=== PATIENT | female | born 1985 | race Caucasian/White ===

== ENCOUNTER → 2016-09-27 | Outpatient (REF) | payer BC | LOC: M SFHCWAGY 11:35 | PROVIDERS: ATTEND Nurse Practitioner Women's Health | DX: R10.2 Pelvic and perineal pain (principal); N94.10 Unspecified dyspareunia; Z11.3 Encounter for screening for infections with a predominantly sexual mode of transmission ==

== ENCOUNTER → 2016-09-28 | Outpatient (CLI) | payer BC ==
--- NOTE | 2016-09-28 17:57 | REP ---
PELVIC ULTRASOUND: Real-time sonographic evaluation of the pelvis performed utilizing transabdominal and endovaginal technique. The bladder measures 5.2 x 5.1 x 8.6 cm. Uterus measures 8.0 x 2.4 x 3.5 cm. Endometrial thickness is 6 mm with no endometrial fluid collection. Right ovary measures 2.7 x 2.0 x 2.2 cm. The left ovary measures 3.2 x 2.4 x 2.6 cm. A dominant follicle in the left ovary measures 2.2 cm in maximum diameter. There is no adnexal mass or free fluid. IMPRESSION: Essentially normal pelvic ultrasound.
== END ==
LOC: M WHC 14:25
PROVIDERS: ATTEND Nurse Practitioner Women's Health
DX: R10.2 Pelvic and perineal pain (principal); N94.10 Unspecified dyspareunia

== ENCOUNTER → 2016-11-14 | Outpatient (REF) | payer BC | LOC: M SFHCWAGY 14:15 | PROVIDERS: ATTEND Nurse Practitioner Women's Health | DX: Z12.4 Encounter for screening for malignant neoplasm of cervix (principal) | CPT/HCPCS: 87491; 87591; G0123 ==

== ENCOUNTER → 2017-03-13 | Outpatient (CLI) | payer BC | LOC: M RAD 15:01 | DX: Q07.00 Arnold-Chiari syndrome without spina bifida or hydrocephalus (principal) ==

== ENCOUNTER → 2017-04-02 | Outpatient (CLI) | payer BC ==
[2017-04-02 17:37] LABS: ALBUMIN/GLOBULIN RATIO 1.08 (1.00-1.93); ALKALINE PHOSPHATASE 65 U/L (45-117); ALT/SGPT 22 U/L (12-78); ANION GAP 8 MEQ/L (8-16); AST/SGOT 13 U/L (7-37); BILIRUBIN,TOTAL 0.4 MG/DL (0.2-1.0); BLOOD UREA NITROGEN 15 MG/DL (7-18); CALCIUM LEVEL 9.1 MG/DL (8.5-10.1); CARBON DIOXIDE LEVEL 28 MEQ/L (21-32); CHLORIDE LEVEL 103 MEQ/L (98-107); CREATININE FOR GFR 0.89 MG/DL (0.55-1.30); GLOMERULAR FILTRATION RATE > 60.0 (>60); GLUCOSE, FASTING 106 MG/DL (70-100); POTASSIUM SERUM 4.3 MEQ/L (3.5-5.1); RHEUMATOID FACTOR QUANT < 10.0 IU/ML (0-15.0); SODIUM LEVEL 139 MEQ/L (136-145); TOTAL PROTEIN 7.7 GM/DL (6.4-8.2)
[2017-04-02 17:39] LABS: TOTAL 25(OH) VITAMIN D 19.3 NG/ML (30.0-100.0)
[2017-04-02 19:26] LABS: BASO # 0.1 10^3/uL (0.0-0.2); BASO % 0.9 % (0.0-1.0); EOS # 0.2 10^3/uL (0.0-0.50); EOS % 2.2 % (0.0-3.0); HEMATOCRIT 41.2 % (36.0-47.0); HEMOGLOBIN 13.2 g/dl (12.0-16.0); IMMATURE GRANULOCYTE % 0.2 % (0-3.0); LYMPH # 3.9 10^3/uL (1.5-4.5); LYMPH % 40.7 % (24.0-44.0); MEAN CORPUSCULAR HEMOGLOBIN 28.2 pg (27.0-33.0); MONO # 0.5 10^3/uL (0.0-0.8); MONO % 5.1 % (0.0-5.0); NEUTROPHILS # 4.9 10^3/uL (1.8-7.7); NEUTROPHILS % 50.9 % (36.0-66.0); PLATELET COUNT, AUTOMATED 389 10^3/uL (150-450); RED BLOOD COUNT 4.68 10^6/uL (4.00-5.40); WHITE BLOOD COUNT 9.7 10^3/uL (4.0-10.0)
[2017-04-02 20:03] LABS: ERYTHROCYTE SEDIMENTATION RATE 5 mm/hr (0-20)
[2017-04-04 10:17] LABS: ANTINUCLEAR ANTIBODIES DIRECT Negative (Negative)
== END ==
LOC: M LAB 16:38
DX: R51 Headache (principal)
CPT/HCPCS: 84443

== ENCOUNTER → 2017-07-27 | Outpatient (REF) | payer BC ==
[2017-07-27 19:55] LABS: CHLAMYDIA DNA AMPLIFICATION NEGATIVE (NEGATIVE); GC DNA AMPLIFICATION NEGATIVE (NEGATIVE)
== END ==
LOC: M SFHCWAGY 16:48
DX: R39.14 Feeling of incomplete bladder emptying (principal)
CPT/HCPCS: 87086

== ENCOUNTER → 2017-11-15 | Outpatient (REF) | payer BC | LOC: M SFHCWAGY 15:49 | DX: Z12.4 Encounter for screening for malignant neoplasm of cervix (principal) | CPT/HCPCS: G0123 ==

== ENCOUNTER → 2017-11-15 | Outpatient (REF) | payer BC ==
[2017-11-15 22:25] LABS: CHLAMYDIA DNA AMPLIFICATION NEGATIVE (NEGATIVE); GC DNA AMPLIFICATION NEGATIVE (NEGATIVE)
== END ==
LOC: M SFHCWAGY 17:15
DX: Z11.3 Encounter for screening for infections with a predominantly sexual mode of transmission (principal)
CPT/HCPCS: 87591

== ENCOUNTER → 2018-07-27 | Outpatient (CLI) | payer BC ==
[2018-07-27 09:44] LABS: BASO # 0.1 10^3/uL (0.0-0.2); EOS # 0.2 10^3/uL (0.0-0.50); EOS % 2.1 % (0.0-3.0); HEMATOCRIT 38.7 % (36.0-47.0); HEMOGLOBIN 12.3 g/dl (12.0-15.5); LYMPH # 2.8 10^3/uL (1.5-4.5); LYMPH % 35.3 % (24.0-44.0); MEAN CORPUSCULAR HEMOGLOBIN 28.4 pg (27.0-33.0); MEAN CORPUSCULAR HGB CONC 31.8 g/dl (32.0-36.5); MEAN CORPUSCULAR VOLUME 89.4 fl (80.0-96.0); MONO # 0.4 10^3/uL (0.0-0.8); MONO % 5.4 % (0.0-5.0); NEUTROPHILS # 4.4 10^3/uL (1.8-7.7); NEUTROPHILS % 55.9 % (36.0-66.0); PLATELET COUNT, AUTOMATED 283 10^3/uL (150-450); RED BLOOD COUNT 4.33 10^6/uL (4.00-5.40); WHITE BLOOD COUNT 7.9 10^3/uL (4.0-10.0)
[2018-07-27 10:18] LABS: ALBUMIN 3.5 GM/DL (3.2-5.2); ALT/SGPT 19 U/L (12-78); BILIRUBIN,TOTAL 0.5 MG/DL (0.2-1.0); BLOOD UREA NITROGEN 13 MG/DL (7-18); CALCIUM LEVEL 8.8 MG/DL (8.5-10.1); CARBON DIOXIDE LEVEL 27 MEQ/L (21-32); CHLORIDE LEVEL 108 MEQ/L (98-107); CHOLESTEROL LEVEL 177 MG/DL (<200); CHOLESTEROL RISK RATIO 4.317 (<5); CREATININE FOR GFR 0.77 MG/DL (0.55-1.30); GLOMERULAR FILTRATION RATE > 60.0 (>60); GLUCOSE, FASTING 89 MG/DL (70-100); HDL CHOLESTEROL 41 MG/DL (>40); LDL CHOLESTEROL 111 MG/DL (<100); NON-HDL-C 136 MG/DL; POTASSIUM SERUM 4.2 MEQ/L (3.5-5.1); SODIUM LEVEL 140 MEQ/L (136-145); T UPTAKE 33 % (30-39); THYROXINE (T4) 9.7 UG/DL (4.5-12.0); TOTAL PROTEIN 6.9 GM/DL (6.4-8.2); TRIGLYCERIDES LEVEL 123 MG/DL (<150)
[2018-07-29 11:13] LABS: TESTOSTERONE 16 NG/DL (14-76); TOTAL 25(OH) VITAMIN D 16.9 NG/ML (30.0-100.0)
[2018-07-30 00:06] LABS: EBV AB TO NUCLEAR ANTIGEN <18.0 U/mL (0.0-17.9); EBV VIRAL CAPSID AG IgM <36.0 U/mL (0.0-35.9)
== END ==
LOC: M LAB 09:13
PROVIDERS: ATTEND Physician Assistant
DX: R53.83 Other fatigue (principal); E55.9 Vitamin D deficiency, unspecified; E78.5 Hyperlipidemia, unspecified

== ENCOUNTER → 2018-12-24 | Outpatient (CLI) | payer BC ==
--- NOTE | 2018-12-25 08:44 | REP ---
MRI left foot without contrast: History: Pain in the left foot. No comparison radiographs are available. Rule out OCD lesion or peroneal tendonitis. Technique: Axial, coronal and sagittal imaging planes are utilized. T1 and T2-weighted scans are included with and without fat saturation. MRI findings: Cortical and medullary bone signal intensity are normal. There is no evidence of tarsal coalition or occult bony injury. Plantar fascia are smooth. The Achilles tendon is normal in size and homogeneous and low in signal intensity. There is a tiny amount of fluid anterior to its distal calcaneal insertion. No joint effusion or juxtaarticular cyst is seen. There is no evidence of ligament disruption at the ankle. The talar dome and tibial plafond are unremarkable. There is no evidence of osteochondral defect lesion. Peroneus longus and brevis tendons appear intact laterally. Medially, the tibialis posterior, flexor digitorum, and flexor hallicis longus tendons have an intact appearance as well. There is no evidence of extensor tendinopathy. The soft tissues in the web spaces as well as dorsal and volar soft tissues are unremarkable. Impression: No abnormality noted. Electronically Signed by Orlin De Souza MD 12/25/2018 10:21 A
== END ==
LOC: M RAD 17:29
PROVIDERS: ATTEND Orthopaedic Surgery Sports Medicine
DX: M79.672 Pain in left foot (principal)

== ENCOUNTER → 2019-04-18 | Outpatient (CLI) | payer BC ==
[2019-04-18 15:50] LABS: ESTRADIOL 34.8 PG/ML; FOLLICLE STIMULATING HORMONE 4.4 mIU/mL; LUTEINIZING HORMONE 3.6 mIU/mL; PROGESTERONE 0.21 NG/ML
== END ==
LOC: M LAB 14:35
PROVIDERS: ATTEND Obstetrics & Gynecology
DX: E34.9 Endocrine disorder, unspecified (principal)

== ENCOUNTER → 2019-07-17 | Outpatient (CLI) | payer BC ==
[2019-07-17 18:30] LABS: ESTRADIOL 74.1 PG/ML; LUTEINIZING HORMONE 12.5 mIU/mL; PROGESTERONE 0.21 NG/ML
[2019-07-19 16:08] LABS: TESTOSTERONE FREE (DIRECT) 0.6 pg/mL (0.0-4.2)
== END ==
LOC: M LAB 16:50
PROVIDERS: ATTEND Obstetrics & Gynecology
DX: I48.0 Paroxysmal atrial fibrillation (principal); R53.83 Other fatigue; F52.0 Hypoactive sexual desire disorder

== ENCOUNTER → 2020-03-09 | Outpatient (REF) | payer BC ==
[2020-03-09 18:18] LABS: HEMATOCRIT 38.2 % (36.0-47.0); HEMOGLOBIN 12.6 g/dl (12.0-15.5); MEAN CORPUSCULAR HEMOGLOBIN 28.8 pg (27.0-33.0); MEAN CORPUSCULAR VOLUME 87.4 fl (80.0-96.0); PLATELET COUNT, AUTOMATED 360 10^3/uL (150-450); RED BLOOD COUNT 4.37 10^6/uL (4.00-5.40); WHITE BLOOD COUNT 11.1 10^3/uL (4.0-10.0)
[2020-03-09 19:45] LABS: HCG, SERUM QUANTITATIVE 67692 MIU/ML; HEPATITIS C VIRUS ABY INDEX < 0.0 INDEX (<0.8); HIV 1&2 SCREEN CENTAUR NEGATIVE (NEGATIVE)
== END ==
LOC: M LAB REF 16:59
PROVIDERS: ATTEND Obstetrics & Gynecology
DX: O36.80X0 Pregnancy with inconclusive fetal viability, not applicable or unspecified (principal)

== ENCOUNTER → 2020-03-15 | Outpatient (CLI) | payer BC ==
--- NOTE | 2020-03-15 18:28 | REP ---
INDICATION: DATING AND VIABILITY. Supervision of . COMPARISON: None. TECHNIQUE: Transabdominal sonographic scanning. FINDINGS: Scanning through the urine filled bladder demonstrates a viable single intrauterine gestation in a free-floating lie. The crown-rump length of the embryonic pole is 2.0 cm. This corresponds with a gestational age estimate of 8 weeks 4 days. heart rate is recorded at 161 beats per minute. No extra uterine abnormality is observed. IMPRESSION: Viable single intrauterine gestation at 8 weeks 4 days by today's composite sonographic criteria. BRUNA by today's sonography October 21, 2020. No complication identified. <Electronically signed by Giovanni De Souza > 03/15/20 [id number]
== END ==
LOC: M WHC 11:58
PROVIDERS: ATTEND Obstetrics & Gynecology
DX: O36.80X0 Pregnancy with inconclusive fetal viability, not applicable or unspecified (principal); Z3A.08 8 weeks gestation of pregnancy

== ENCOUNTER → 2020-06-07 | Outpatient (CLI) | payer BC ==
--- NOTE | 2020-06-07 15:29 | REP ---
INDICATION: ANATOMY COMPARISON: 03/15/2020 TECHNIQUE: Transabdominal obstetrical ultrasound with color Doppler evaluation. FINDINGS: Examination demonstrates a single live intrauterine in cephalic presentation. motion is identified by technologist. Placenta is noted posterior and grade 1 without evidence for placenta previa or abruption. Amniotic fluid volume is normal. Cervix measures 3.4 cm in length and appears closed.. Gestational age by LMP and 1st U/S 20 weeks 0 days with BRUNA 10/25/2020. Gestational age by current measurements 21 weeks 4 days with BRUNA 10/14/2020. FHR equals 150 beats per minute. BPD: 5.1 cm at 21 weeks 3 days HC: 19.0 cm at 21 weeks 2 days AC: 16.4 cm at 21 weeks 3 days FL: 3.7 cm at 21 weeks 4 days HL: 3.6 cm at 22 weeks 3 days HC/AC: 1.15 Estimated weight 429 grams (greater than 97thpercentile based on age by LMP and 1st ultrasound). Anatomical assessment demonstrates normal structures including cranium, choroid plexus, cavum, cerebellum/posterior fossa, facial features, lungs, four-chamber heart/ventricular outflow tracts, diaphragm, stomach, cord insertion/three-vessel cord, kidneys/bladder, spine, and extremities. IMPRESSION: 1. Single live intrauterine in cephalic presentation. Anatomical assessment is complete and normal. 2. Estimated weight is greater than 97th percentile based on age by 1st ultrasound. Correlation is recommended. <Electronically signed by Gregory Silva > 06/07/20 [id number]
== END ==
LOC: M WHC 14:26
PROVIDERS: ATTEND Advanced Practice Midwife
DX: Z34.82 Encounter for supervision of other normal pregnancy, second trimester (principal); Z3A.20 20 weeks gestation of pregnancy

== ENCOUNTER → 2020-07-20 | Outpatient (REF) | LOC: M LABSMTC 10:39 | PROVIDERS: ATTEND Pediatrics | DX: Z20.822 Contact with and (suspected) exposure to COVID-19 (principal) ==

== ENCOUNTER → 2020-07-27 | Outpatient (REF) | payer BC ==
[2020-07-27 17:06] LABS: BACTERIA, URINE AUTO 2+ (NEGATIVE); CALCIUM OXALATE CRYSTALS SMALL; RBC, URINE AUTO 1 /HPF (0-3); SQUAMOUS EPITHELIAL CELL UR AU 5 /HPF (0-6); WBC, URINE AUTO 14 /HPF (0-3)
== END ==
LOC: M LAB REF 16:36
PROVIDERS: ATTEND Advanced Practice Midwife
DX: N39.0 Urinary tract infection, site not specified (principal)

== ENCOUNTER → 2020-08-03 | Outpatient (CLI) | payer BC ==
[2020-08-03 16:29] LABS: HEMATOCRIT 34.9 % (36.0-47.0); HEMOGLOBIN 11.4 g/dl (12.0-15.5); MEAN CORPUSCULAR HEMOGLOBIN 28.9 pg (27.0-33.0); MEAN CORPUSCULAR HGB CONC 32.7 g/dl (32.0-36.5); MEAN CORPUSCULAR VOLUME 88.4 fl (80.0-96.0); PLATELET COUNT, AUTOMATED 281 10^3/uL (150-450); RED BLOOD COUNT 3.95 10^6/uL (4.00-5.40)
== END ==
LOC: M LAB 15:33
PROVIDERS: ATTEND Advanced Practice Midwife
DX: Z34.83 Encounter for supervision of other normal pregnancy, third trimester (principal); Z3A.00 Weeks of gestation of pregnancy not specified

== ENCOUNTER → 2020-09-21 | Outpatient (REF) | payer BC | LOC: M LAB REF 17:07 | PROVIDERS: ATTEND Obstetrics & Gynecology | DX: Z34.03 Encounter for supervision of normal first pregnancy, third trimester (principal); Z3A.00 Weeks of gestation of pregnancy not specified ==

== ENCOUNTER → 2020-10-06 | Outpatient (REF) | LOC: M LABSMTC 13:38 | PROVIDERS: ATTEND Pediatrics | DX: Z20.828 Contact with and (suspected) exposure to other viral communicable diseases (principal); Z11.59 Encounter for screening for other viral diseases ==

== ENCOUNTER 2020-10-27 04:32 | Inpatient (IN) | payer BC ==
[2020-10-27] VITALS (104 sets, daily range): BP systolic 80–159; BP diastolic 45–86
[~2020-10-27] VITALS: Ht 167.6 cm; Wt 112.0 kg
[2020-10-27] MEDS ORDERED: HOME MED LIST COMPLETE! XX SCH (05:00)
[2020-10-27] MEDS ORDERED: LACTATED RINGER'S 1000 ML IV STA (06:23)
[2020-10-27] MEDS ORDERED: METHYLERGONOVINE MALEATE 0.2 MG/ML VIAL (J2210) IM PRN (06:25)
[2020-10-27] MEDS ORDERED: LIDOCAINE 1% MDV 20ML VIAL INFIL PRN (06:25)
[2020-10-27] MEDS ORDERED: OXYTOCIN INJ 10 UNITS/ML VIAL (J2590) IM PRN (06:25)
[2020-10-27] MEDS ORDERED: OXYTOCIN DRIP 30 UNITS in IV 1 EA IV PRN ×4 (06:25)
[2020-10-27] MEDS ORDERED: TRANEXAMIC ACID INJection 1,000 MG in NS 100 ML IV PRN (06:25)
[2020-10-27] MEDS ORDERED: CARBOPROST TROMETHAMINE 250 MCG/ML AMP IM PRN (06:25)
[2020-10-27 06:38] LABS: HEMATOCRIT 38.8 % (36.0-47.0); HEMOGLOBIN 13.1 g/dl (12.0-15.5); MEAN CORPUSCULAR HGB CONC 33.8 g/dl (32.0-36.5); MEAN CORPUSCULAR VOLUME 85.8 fl (80.0-96.0); PLATELET COUNT, AUTOMATED 318 10^3/uL (150-450); RED BLOOD COUNT 4.52 10^6/uL (4.00-5.40); WHITE BLOOD COUNT 12.6 10^3/uL (4.0-10.0)
[2020-10-27] MEDS: ONDANSETRON 4MG/2ML VIAL IV PRN ×2 (06:43→14:57)
--- NOTE | 2020-10-27 06:59 | HPE ---
HISTORY AND PHYSICAL DATE OF ADMISSION: 10/27/2020 HISTORY OF PRESENT ILLNESS: Susanna is a 35-year-old 1 para 0 at 40 and 2/7th weeks gestation with an EDC of 10/25/2020 based on first trimester ultrasound. She presents to Labor and Delivery today with a report of ruptured membranes at 0240, clear fluid and painful contractions. She does deny vaginal bleeding. She reports continued leakage, the fetus has been active. Her care was initiated at [facility] in the first trimester. The course was complicated by advanced maternal age. OBSTETRIC HISTORY: Primigravida. OBSTETRIC LABS: B positive, antibody screen negative, syphilis negative, hepatitis B surface antigen negative, hepatitis C antibody nonreactive. HIV nonreactive, rubella immune. Gestational diabetic screening 131, GBS is negative. COVID-19 on 10/19/2020 negative. Gonorrhea and chlamydia not performed. PAST MEDICAL HISTORY: Migraine headaches. PAST SURGICAL HISTORY: In 1999 surgery for Chiari malformation. FAMILY HISTORY: High cholesterol, hypertension, lupus, muscular dystrophy. SOCIAL HISTORY: The patient is . She is a physical therapist. She denies drug use and alcohol use. She is a nonsmoker. She denies any history of sexually transmitted infections and she denies history of abuse, physical, sexual and emotional. ALLERGIES: No known drug allergies. CURRENT MEDICATIONS: Omeprazole 20 mg daily, Fioricet as needed and vitamin. OBJECTIVE: Temperature 98.3, respirations 18, pulse is 70, BP is 134/70. She is uncomfortable with her contractions. heart rate is 130 with moderate variability, positive accelerations, negative decelerations. Contractions appear to be every 2 to 4 minutes. She is grossly ruptured per Dr. Canales, positive Nitrazine. Sterile vaginal exam per RICHARD Melendez, 3 to 4 cm dilated, 60% effaced, -2 station. Abdomen is gravid, cephalic presentation. ASSESSMENT: Intrauterine at 40 and 2/7th weeks. heart rate Category 1, active labor at term. PLAN: Admit the patient to Labor and Delivery, routine laboratories, out of bed ad aleena, a clear liquid at this time, the patient is requesting an epidural for her labor coping. IV fluid bolus has been ordered. The patient has been verbally consented for emergency surgery and blood products if they are necessary. May consider IV Pitocin augmentation if necessary once epidural is in place. I do anticipate labor progress and a vaginal delivery.
[2020-10-27] MEDS ORDERED: FENTANYL 2MCG/ML ROPIVACAINE 0.2% IN 0.9% NACL 100ML IVBAG As Ordered ONE ×2 (07:05→13:16)
[2020-10-27] MEDS ORDERED: REFRIGERATOR IV KEYS XX PRN (07:30)
[2020-10-27] MEDS ORDERED: ONDANSETRON 4MG/2ML VIAL IV PRN (07:30)
[2020-10-27] MEDS ORDERED: NALOXONE INJ 0.4MG/1ML VIAL (J2310 PER 1MG) IV PRN (07:30)
[2020-10-27] MEDS ORDERED: diphenhydrAMINE 50MG/ML VIAL (J1200) IV PRN (07:30)
[2020-10-27] MEDS ORDERED: LACTATED RINGER'S 1000 ML IV PRN (07:30)
[2020-10-27] MEDS ORDERED: EPIDURAL/PCA KEYS XX PRN (07:30)
[2020-10-27] MEDS ORDERED: EPIDURAL COMMENT XX SCH (07:30)
[2020-10-27] MEDS: LR 1,000 ML IV SCH ×3 (08:10→17:28)
[2020-10-27] MEDS: FENTANYL/ROPIVACAINE/NACL BAG 100 ML EPIDURAL SCH ×2 (08:35→13:19)
[2020-10-27] MEDS: ePHEDrine SULFATE 25 MG/5 ML(5MG/ML) SYRINGE IV PRN ×5 (08:41→20:09)
[2020-10-27] MEDS: PRENATAL VITAMINS CHEWABLE TABLET PO SCH (09:48)
[2020-10-27 09:51] LABS: GC DNA AMPLIFICATION NEGATIVE (NEGATIVE)
[2020-10-27] MEDS ORDERED: OXYTOCIN DRIP 30 UNITS in IV 1 EA IV SCH (11:10)
[2020-10-28] VITALS (8 sets, daily range): BP systolic 109–132; BP diastolic 60–78
[2020-10-28] MEDS ORDERED: LACTATED RINGER'S 1000 ML IV STA (01:39)
[2020-10-28] MEDS ORDERED: BICITRA 30ML SOLN UDC PO ONE (01:40)
[2020-10-28] MEDS ORDERED: AZITHROMYCIN INJ 500 MG, VIAL MATE ADAPTER 1 EACH in NS 250 ML IV ONE (01:40)
[2020-10-28] MEDS ORDERED: ceFAZolin SOD 2 GM in IV 1 EA IV ONE (01:40)
[2020-10-28] MEDS ORDERED: ceFAZolin 2 GM/D5W 50 ML IV BAG (J0690 PER 500MG) As Ordered ONE (01:45)
[2020-10-28] MEDS ORDERED: AZITHROMYCIN INJ 500MG VIAL (J0456 PER 500MG) As Ordered ONE (01:47)
[2020-10-28] MEDS ORDERED: MORPHINE PRES-FREE INJ 10 MG/10 ML VIAL (J2274) As Ordered ONE (01:54)
[2020-10-28] MEDS ORDERED: OXYTOCIN 30 UNITS IN 0.9% NaCl 500ML IV BAG (J2590) As Ordered ONE (01:56)
[2020-10-28] MEDS ORDERED: LIDOCAINE 2% W/EPINEPHRINE 20ML VIAL **PRES FREE As Ordered ONE (01:58)
[2020-10-28] MEDS ORDERED: ONDANSETRON 4MG/2ML VIAL As Ordered ONE (02:10)
[2020-10-28] MEDS ORDERED: NALBUPHINE HCL 10 MG/ML AMP (J2300) IV PRN (02:15)
[2020-10-28] MEDS ORDERED: ONDANSETRON 4MG/2ML VIAL IV PRN ×3 (02:15→09:05)
[2020-10-28] MEDS ORDERED: NALOXONE INJ 0.4MG/1ML VIAL (J2310 PER 1MG) IV PRN ×2 (02:15)
[2020-10-28] MEDS ORDERED: diphenhydrAMINE 50MG/ML VIAL (J1200) IV PRN (02:15)
[2020-10-28] MEDS ORDERED: METOCLOPRAMIDE INJ 10MG/2ML VIAL (J2765 PER 1) IV PRN ×2 (02:15→09:05)
[2020-10-28] MEDS ORDERED: KETOROLAC 60MG 2ML VIAL As Ordered ONE (03:02)
[2020-10-28] MEDS ORDERED: dexameTHASONE 4 MG/ML 1ML VIAL (J1100 PER 1MG) As Ordered ONE (03:02)
[2020-10-28] MEDS ORDERED: PHENYLephrine 500MCG 5ML (100MCG/ML) SYRINGE As Ordered ONE (03:02)
[2020-10-28] MEDS ORDERED: OXYTOCIN INJ 10 UNITS/ML VIAL (J2590) As Ordered ONE (03:02)
[2020-10-28] MEDS ORDERED: fentaNYL 100 MCG/2 ML INJECTION (J3010) As Ordered ONE (03:13)
[2020-10-28] MEDS ORDERED: MEPERIDINE 50 MG/ML 1ML VIAL (J2175) As Ordered ONE (03:20)
[2020-10-28] MEDS ORDERED: diphenhydrAMINE 50MG/ML VIAL (J1200) As Ordered ONE (03:36)
[2020-10-28] MEDS ORDERED: propofoL 200 MG/20 ML VIAL As Ordered ONE (03:54)
[2020-10-28] MEDS ORDERED: LIDOCAINE 2% 100MG/5ML SDV (FOR ANES.) As Ordered ONE (03:55)
[2020-10-28] MEDS ORDERED: KETAMINE HCL 200 MG/20 ML VIAL As Ordered ONE (03:56)
[2020-10-28] MEDS ORDERED: MIDAZOLAM INJ 2MG/2ML VIAL (J2250 PER 1MG) As Ordered ONE (04:00)
[2020-10-28] MEDS ORDERED: oxyCODONE 5MG TAB PO PRN (04:45)
[2020-10-28] MEDS ORDERED: fentaNYL 100 MCG/2 ML INJECTION (J3010) IV PRN (04:45)
--- NOTE | 2020-10-28 04:55 | POST-OPPD ---
Postoperative Procedure Note Date Of Procedure: Oct 28, 2020 Time Of Procedure: 02:15 PREOPERATIVE DIAGNOSIS: 1) Intrauterine gestation at term 2) Failure to descend POSTOPERATIVE DIAGNOSIS: Same PROCEDURE: Primary low transverse section SURGEON: John Gray MD ATOMIC WELDER: Elisa Vasquez CNM ANESTHESIA: spinal ESTIMATED BLOOD LOSS: 800 FLUIDS: 1200 cc crystalloid URINE OUTPUT: 200 cc, clear yellow FINDINGS: single vigorous male weighing 4150gm SPECIMENS: none COMPLICATIONS: Incorrect count at the close of procedure. Postoperative x-ray revealed retained surgical sponge. Skin and fascial incision reopened and sponge removed. Final count correct x2 DRAINS: de la rosa catheter, draining clear yellow urine POSTOPERATIVE CONDITION: Patient taken to PACU in stable, satisfactory condition. JOHN GRAY MD Oct 28, 2020 04:55
--- NOTE | 2020-10-28 05:34 | ROOPDOC ---
[facility] Report Of Operation Report of Operation DATE OF PROCEDURE: 10/28/20 PREPROCEDURE DIAGNOSES: 1. Intrauterine gestation at term 2. Failure to descend POSTPROCEDURE DIAGNOSES: Same. PROCEDURE PERFORMED: Primary low transverse section with T-incision. SURGEON: John Gray MD PASSENGER BRAKEMAN: Elisa Vasquez CNM ANESTHESIA: Spinal. ESTIMATED BLOOD LOSS: Approximately 800 mL. COMPLICATIONS: Incorrect sponge count at the close of procedure. Postoperative x-ray revealed sponge in the abdomen. Incision had to be reopened to remove. REMARKS: Difficult delivery of head due to hyperextension of the neck. T-incision was used to deliver infant atraumatically. FINDINGS: Single vigorous male infant weighing 4150 g. Apgars of 7 and 8 at 1 and 5 minutes respectively. Lateral extension at the right aspect of the uterine incision. SPECIMENS REMOVED: None INDICATIONS FOR PROCEDURE: Arrest of decent at +1 station despite prolonged and adequate maternal effort. DESCRIPTION OF PROCEDURE: Patient was taken to the operative suite where a spinal was placed by anesthesia without difficulty. The patient was placed in the dorsal supine position and prepped and draped in the normal sterile fashion. Allis clamp was used to ensure adequate anesthesia. Once adequate anesthesia was noted a's low transverse skin incision was made and carried down to the underlying fascia sharply with a scalpel. The fascia was then nicked on either side of the midline and extended laterally using pickups and curved Tian scissors. The lower aspect of the fascial incision was grasped with Isidro clamp s and elevated off the underlying rectus muscle both sharply and bluntly. The Isidro clamps were removed and applied to the superior aspect of the incision which was then lifted off the underlying rectus muscle both bluntly and sharply. The rectus muscles were in the midline with the use of a hemostat and the peritoneum was entered bluntly. The peritoneum was then bluntly stretched and the uterus was identified. A Mobius retractor was placed within the incision. The vesicouterine junction was then identified and a bladder flap was created using pickups and Metzenbaum scissors and the bladder blade was inserted into the bladder flap. The uterine incision was made with a scalpel and extended bluntly with cephalad and caudal pressure. The the was found to be in the ROT position with hyperextension of the neck. A hand was used in the vagina to help elevate the head which was then flexed and elevated to the level of the incision. However, in order to flex the head, more room was needed at the incision site and the decision was made to proceed with a T-incision. Once the head was able to be flexed and elevated to the level of the incision the head and the rest of the body was delivered atraumatically. The infant was vigorous upon delivery and a 30 second delay was observed before clamping and cutting of the umbilical cord. The cord was clamped and cut and the was handed to the waiting baby nurse. At this time the placenta was removed from the uterus with traction and expression. The hysterotomy was then inspected and a right lateral uterine extension was noted. At this time the Mobius retractor was removed from the abdomen and the uterus was exteriorized. T clamps were used to grasp the hysterotomy hysterotomy circumferentially and the hysterotomy was repaired with an 0 Vicryl suture starting at the apex of the uterine extension. The vertical T-incision was repaired with 0 Vicryl suture. After the hysterotomy was closed a second imbricating layer was performed. Several [id number] sutures were used at the apexes of the incision to ensure adequate hemostasis. Once adequate hemostasis was noted the uterus was then returned to the abdominal cavity and the gutters were cleared of all clot debris. Again the hysterotomy was inspected and found to be hemostatic. At this time attention was turned to the fascia which was closed with an 0 Vicryl suture in a running fashion. The wound was irrigated with normal saline. The subcutaneous layer was closed with a 3-0 Vicryl suture. And the skin incision was closed with an 4-0 Monocryl suture. At this time the count was found to be in correct and a surgical sponge was missing from the count. A postoperative x-ray was ordered prior to leaving the operative suite which noted a sponge intra-abdominally. At this time the sutures closing the skin subcutaneous layer and fascia were reopened and the abdomen explored. The sponge was located in the upper abdomen and removed. Count at this time was correct. The fascia was then closed with an 0 Vicryl suture in a running fashion followed by the subcutaneous layer being closed by 3-0 Vicryl. The skin was closed with 4-0 Monocryl. Steri's were applied as well as sterile bandages. The patient tolerated the procedure well and was taken to the PACU in stable satisfactory condition. Due to the fact that the section required a teed incision I would not recommend a trial of labor in the future. This was discussed with the patient in the PACU. JOHN GRAY MD Oct 28, 2020 05:34
--- NOTE | 2020-10-28 06:11 | REPVR ---
PROCEDURE INFORMATION: Exam: XR Abdomen Exam date and time: 10/28/20 (3:49am) Age: 35 years old Clinical indication: Lost lap TECHNIQUE: Imaging protocol: XR of the abdomen Views: Frontal supine view of the abdomen. 1 View. COMPARISON: No relevant prior studies available FINDINGS: A portable supine view of the abdomen includes the lower abdomen and pelvis. Much fecal matter in the visualized right colon. The urinary bladder is likely distended with urine. A Phipps catheter (or perhaps a rectal tube) may be in place. A radiodense lap pad or lap sponge projects over the L4 and L5 vertebral bodies. IMPRESSION: No acute findings. A radiodense lap pad or lap sponge projects over the L4 and L5 vertebral bodies (likely a retained surgical foreign body). Electronically signed by: Monserrat Genao On 10/28/2020 06:11:04 AM
[2020-10-28] MEDS ORDERED: RHOGAM 300 MCG (1500 IU) INJ (J2790) IM SCH (08:15)
[2020-10-28] MEDS ORDERED: ACETAMINOPHEN 500 MG TAB PO PRN (08:15)
[2020-10-28] MEDS ORDERED: MEASLES,MUMPS,RUBELLA VACCINE INJ (MMR-II) (90707) SC SCH (08:15)
[2020-10-28] MEDS ORDERED: SIMETHICONE 80MG CHEW TAB PO PRN (08:15)
[2020-10-28] MEDS: DOCUSATE SODIUM 100MG CAPSULE PO SCH ×2 (09:47→22:53)
[2020-10-28] MEDS: KETOROLAC 30 MG/ML 1ML VIAL IV SCH ×3 (09:47→22:53)
[2020-10-28] MEDS: diphenhydrAMINE 50MG/ML VIAL (J1200) IV PRN ×2 (09:47→13:17)
[2020-10-28] MEDS: LR 1,000 ML IV SCH ×2 (09:47→16:15)
[2020-10-29] MEDS: LR 1,000 ML IV SCH ×3 (00:15→16:15)
[2020-10-29 02:00] VITALS: BP 99/53
[2020-10-29 07:15] VITALS: BP 122/73
[2020-10-29] MEDS: IBUPROFEN 800 MG TAB PO SCH ×3 (07:21→20:49)
[2020-10-29 07:58] LABS: HEMATOCRIT 28.4 % (36.0-47.0); HEMOGLOBIN 9.3 g/dl (12.0-15.5); MEAN CORPUSCULAR HEMOGLOBIN 28.5 pg (27.0-33.0); MEAN CORPUSCULAR HGB CONC 32.7 g/dl (32.0-36.5); MEAN CORPUSCULAR VOLUME 87.1 fl (80.0-96.0); PLATELET COUNT, AUTOMATED 287 10^3/uL (150-450); RED BLOOD COUNT 3.26 10^6/uL (4.00-5.40); WHITE BLOOD COUNT 16.2 10^3/uL (4.0-10.0)
[2020-10-29] MEDS: DOCUSATE SODIUM 100MG CAPSULE PO SCH ×2 (10:57→20:48)
[2020-10-29] MEDS: PRENATAL VITAMINS CHEWABLE TABLET PO SCH (10:57)
[2020-10-29 10:58] VITALS: BP 119/79
--- NOTE | 2020-10-29 11:24 | IPNPDOC ---
Progress Note Date of Service: Oct 29, 2020 Day#: 1 Progress Note SUBJECT: Susanna is a 35-year-old female who is a who had a primary section for arrest of descent. Her baby is presently in the care of the NICU for difficulty maintaining blood sugars. She has been ambulating, voiding and able to tolerate a regular diet. She reports pain has been managed well. OBJECTIVE: VITAL SIGNS: Within normal limits, afebrile. Alert and oriented times three. OOB walking in room. Respiratory: regular rate and rhythm without use of accessory muscles. Abdomen: Fundus firm. Dressing is intact and edges of dressing without erythema. Minimal lochia. ASSESSMENT: Day 1 postoperative PLAN: 1. Patient may shower. 2. Encouraged ambulation. 3. Continue with pain management. VS, I&O, 24H, Fishbone Vital Signs/I&O Vital Signs Date Time Temp Pulse Resp B/P (MAP) Pulse Ox O2 Delivery O2 Flow Rate FiO2 10/29/20 10:58 96.1 75 17 119/79 (92) 98 Room Air I&O- Last 24 Hours up to 6 AM 10/29/20 05:59 Intake Total 1946 ml Output Total 950 ml Balance 996 ml Laboratory Data 24H LABS Laboratory Tests 2 10/29/20 07:27: Nucleated Red Blood Cells % (auto) 0.0 CBC/BMP Laboratory Tests 10/29/20 07:27 BRO SMALLS CNM Oct 29, 2020 11:24
[2020-10-29] MEDS ORDERED: INFLUENZA QUADRIVALENT PF VACCINE 0.5ML SYRINGE IM ONE (12:00)
[2020-10-29] MEDS ORDERED: BOOSTRIX/ADACEL VACCINE (DIPHTH/PERTUSS/ACELL/TETANUS) 0.5ML SYR IM ONE (12:00)
[2020-10-29] MEDS: PERCOCET 5MG/325MG TAB PO PRN (13:32)
[2020-10-29 14:00] VITALS: BP 118/57
[2020-10-29 18:00] VITALS: BP 134/86
[2020-10-29 21:00] VITALS: BP 124/70
[2020-10-30] MEDS: PERCOCET 5MG/325MG TAB PO PRN ×3 (00:54→22:12)
[2020-10-30 02:00] VITALS: BP 136/75
[2020-10-30] MEDS: IBUPROFEN 800 MG TAB PO SCH ×3 (05:34→22:11)
[2020-10-30 06:00] VITALS: BP 107/53
[2020-10-30] MEDS: DOCUSATE SODIUM 100MG CAPSULE PO SCH ×2 (08:14→20:02)
[2020-10-30] MEDS: PRENATAL VITAMINS CHEWABLE TABLET PO SCH (08:14)
[2020-10-30 10:15] VITALS: BP 130/65
--- NOTE | 2020-10-30 11:52 | IPNPDOC ---
Progress Note Date of Service: Oct 30, 2020 Day#: 2 Progress Note SUBJECT: Doing well without complaints. Ambulating, voiding and pain is well-c ontrolled. Reports minimal lochia. OBJECTIVE: VITAL SIGNS: Within normal limits, afebrile. Alert and oriented times three. Abdomen: Fundus firm at U-2. Soft, NTTP. Incision: dressed Ext: neg calf tenderness. ASSESSMENT: /postoperative day #2 status post delivery. Recovering in stable condition. PLAN: 1. Continue routine /postoperative care 2. Discharge plans for tomorrow VS, I&O, 24H, Fishbone Vital Signs/I&O Vital Signs Date Time Temp Pulse Resp B/P (MAP) Pulse Ox O2 Delivery O2 Flow Rate FiO2 10/30/20 10:15 96.7 74 18 130/65 (86) Room Air 10/30/20 06:00 97 I&O- Last 24 Hours up to 6 AM 10/30/20 06:00 Intake Total 1440 ml Balance 1440 ml GOYO ERIC MD. Oct 30, 2020 11:52
[2020-10-30 17:56] VITALS: BP 131/82
[2020-10-31] MEDS: IBUPROFEN 800 MG TAB PO SCH (05:28)
[2020-10-31 06:00] VITALS: BP 143/78
[2020-10-31] MEDS: DOCUSATE SODIUM 100MG CAPSULE PO SCH (08:55)
[2020-10-31] MEDS: PERCOCET 5MG/325MG TAB PO PRN (08:55)
[2020-10-31] MEDS: PRENATAL VITAMINS CHEWABLE TABLET PO SCH (08:55)
[2020-10-31] MEDS ORDERED: PERCOCET PO (10:13)
[2020-10-31] MEDS ORDERED: IBUP80TA PO (10:13)
--- NOTE | 2020-10-31 10:31 | DS.PDOC ---
Discharge Summary General Date of Admission Oct 27, 2020 at 05:41 Date of Discharge 10/31/20 Attending Physician: JOHN GRAY MD Discharge Summary PROCEDURES PERFORMED DURING STAY: Primary lower transverse section with T incision. ADMITTING DIAGNOSES: 1. Active labor. DISCHARGE DIAGNOSES: 1. Failure to descend. COMPLICATIONS/CHIEF COMPLAINT: ?ROM. HISTORY OF PRESENT ILLNESS: Mrs. Ang presented in active labor. She progressed to c/c/+1 and pushed for several hours and underwent a section, rem rosendo for teen of the hysterotomy. Patient did well postoperatively by postoperative day 3 had met all discharge criteria is as discharged home in stable condition DISCHARGE MEDICATIONS: Please see below. ALLERGIES: Please see below. PHYSICAL EXAMINATION ON DISCHARGE: VITAL SIGNS: Please see below. GENERAL: No distress HEENT: WNL ABDOMINAL EXAMINATION: Fundus firm. Dressing intact EXTREMITIES: Equal strength and motion SKIN: Intact NEUROLOGICAL EXAMINATION: Grossly intact PSYCHIATRIC EXAMINATION: Appropriate LABORATORY DATA: Please see below. PROGNOSIS: Good ACTIVITY: As tolerated. Pelvic rest. DIET: As tolerated DISCHARGE PLAN: Discharge today. Remove dressing day 5 DISPOSITION: Home DISCHARGE INSTRUCTIONS: 1. Pelvic rest. Continue vitamins. Medications as ordered. Call with fever, nausea, vomiting, chills, foul lochia, wound exudate or evidence infection. RTO early 2 weeks. DISCHARGE CONDITION: Stable Vital Signs/I&Os Vital Signs Date Time Temp Pulse Resp B/P (MAP) Pulse Ox O2 Delivery O2 Flow Rate FiO2 10/31/20 08:55 18 10/31/20 06:00 97.5 79 143/78 (99) 100 Room Air Discharge Medications Scheduled Ibuprofen (Ibuprofen) 800 Mg Tablet, 800 MG PO Q8H Scheduled PRN Oxycodone/Acetaminophen (Oxycodone-Acetaminophen 5-325) 1 Each Tablet, 1 TAB PO Q4H PRN for MODERATE PAIN (PS 5-7) Allergies Coded Allergies: No Known Allergies (Unverified , 10/27/20) GOYO ERIC MD. Oct 31, 2020 10:31
== END 2020-10-31 11:55 | disposition home or self-care (01) | DRG 540 ==
LOC: M LDO 04:32 → M LDI 05:41 → M OBS 10-28 05:20 → M PED 10-28 15:06 → M OBS 10-28 15:10
PROVIDERS: ADMIT Specialist; ATTEND Obstetrics & Gynecology
PROC: 10D00Z1 Extraction of Products of Conception, Low, Open Approach (ICD-10-PCS; principal; 2020-10-28 03:06)
DX: O48.0 Post-term pregnancy (principal); O32.4XX0 Maternal care for high head at term, not applicable or unspecified; Z37.0 Single live birth; Z3A.40 40 weeks gestation of pregnancy; O09.513 Supervision of elderly primigravida, third trimester

== ENCOUNTER 2021-05-28 18:02 | Emergency (ER) | payer BC ==
[~2021-05-28] VITALS: Ht 167.6 cm; Wt 117.0 kg
[~2021-05-28 18:02] MED LIST: IBUP80TA PO; PERCOCET PO
[2021-05-28 21:03] LABS: HEMATOCRIT 39.3 % (36.0-47.0); MEAN CORPUSCULAR HEMOGLOBIN 26.9 pg (27.0-33.0); MEAN CORPUSCULAR HGB CONC 33.1 g/dl (32.0-36.5); MEAN CORPUSCULAR VOLUME 81.2 fl (80.0-96.0); PLATELET COUNT, AUTOMATED 356 10^3/uL (150-450); RED BLOOD COUNT 4.84 10^6/uL (4.00-5.40); WHITE BLOOD COUNT 12.2 10^3/uL (4.0-10.0)
[2021-05-28 21:26] LABS: ALBUMIN 3.9 GM/DL (3.2-5.2); ALT/SGPT 35 U/L (12-78); BILIRUBIN,DIRECT 0.2 MG/DL (0.0-0.2); BILIRUBIN,TOTAL 0.7 MG/DL (0.2-1.0); BLOOD UREA NITROGEN 13 MG/DL (7-18); CALCIUM LEVEL 9.2 MG/DL (8.5-10.1); CARBON DIOXIDE LEVEL 24 MEQ/L (21-32); CHLORIDE LEVEL 108 MEQ/L (98-107); CREATININE FOR GFR 0.73 MG/DL (0.55-1.30); GLOMERULAR FILTRATION RATE > 60.0 (>60); GLUCOSE, FASTING 86 MG/DL (70-100); LIPASE 68 U/L (73-393); SODIUM LEVEL 139 MEQ/L (136-145); TOTAL PROTEIN 7.9 GM/DL (6.4-8.2)
[2021-05-28 21:27] LABS: HCG, SERUM QUALITATIVE NEGATIVE (NEGATIVE)
[2021-05-28] MEDS ORDERED: ISOVUE-370 76% 100ML VIAL As Ordered ONE (21:41)
[2021-05-28] MEDS ORDERED: CIPR-249 PO (22:48)
[2021-05-28] MEDS ORDERED: METR-265 PO (22:49)
[2021-05-28] MEDS ORDERED: MORPHINE 4 MG/ML 1ML VIAL/SYRINGE IV ONE (22:50)
[2021-05-28] MEDS ORDERED: metroNIDAZOLE (FLAGYL) 500MG TABLET PO ONE (22:50)
[2021-05-28] MEDS ORDERED: CIPROFLOXACIN 500MG TABLET PO ONE (22:50)
[2021-05-29 00:30] VITALS: BP 107/53
== END 2021-05-29 00:33 | disposition home or self-care (01) ==
LOC: M ED 18:02
DX: K57.32 Diverticulitis of large intestine without perforation or abscess without bleeding (principal); G43.909 Migraine, unspecified, not intractable, without status migrainosus; Q07.9 Congenital malformation of nervous system, unspecified
CPT/HCPCS: 36415; 74177; 76856; 80048; 80076; 81001; 83690; 84703; 85027; 93976; 99284; Q9967

== ENCOUNTER → 2021-06-01 | Outpatient (CLI) | payer BC ==
[~2021-06-01] MED LIST changes: +CIPR-249 PO; +METR-265 PO
[2021-06-01 09:41] LABS: BASO # 0.1 10^3/uL (0.0-0.2); BASO % 1.2 % (0.0-1.0); EOS # 0.2 10^3/uL (0.0-0.5); EOS % 2.5 % (0.0-3.0); HEMATOCRIT 40.6 % (36.0-47.0); HEMOGLOBIN 12.6 g/dl (12.0-15.5); LYMPH # 2.7 10^3/uL (1.5-5.0); LYMPH % 31.9 % (24.0-44.0); MEAN CORPUSCULAR HEMOGLOBIN 26.2 pg (27.0-33.0); MEAN CORPUSCULAR VOLUME 84.4 fl (80.0-96.0); MONO # 0.5 10^3/uL (0.0-0.8); MONO % 5.3 % (2.0-8.0); NEUTROPHILS % 58.9 % (36.0-66.0); PLATELET COUNT, AUTOMATED 365 10^3/uL (150-450); RED BLOOD COUNT 4.81 10^6/uL (4.00-5.40); WHITE BLOOD COUNT 8.4 10^3/uL (4.0-10.0)
[2021-06-01 09:45] LABS: ALBUMIN 3.4 GM/DL (3.2-5.2); ALT/SGPT 31 U/L (12-78); BILIRUBIN,TOTAL 0.5 MG/DL (0.2-1.0); BLOOD UREA NITROGEN 12 MG/DL (7-18); CALCIUM LEVEL 9.3 MG/DL (8.5-10.1); CARBON DIOXIDE LEVEL 27 MEQ/L (21-32); CHLORIDE LEVEL 108 MEQ/L (98-107); CHOLESTEROL LEVEL 157 MG/DL (<200); CHOLESTEROL RISK RATIO 4.131 (<5); CREATININE FOR GFR 0.72 MG/DL (0.55-1.30); GLOMERULAR FILTRATION RATE > 60.0 (>60); GLUCOSE, FASTING 90 MG/DL (70-100); HDL CHOLESTEROL 38 MG/DL (>40); LDL CHOLESTEROL 104 MG/DL (<100); NON-HDL-C 119 MG/DL; POTASSIUM SERUM 4.4 MEQ/L (3.5-5.1); SODIUM LEVEL 142 MEQ/L (136-145); TOTAL PROTEIN 6.9 GM/DL (6.4-8.2); TRIGLYCERIDES LEVEL 76 MG/DL (<150)
[2021-06-01 09:54] LABS: TOTAL 25(OH) VITAMIN D 21.9 NG/ML (30.0-100.0)
== END ==
LOC: M LAB 07:24
PROVIDERS: ATTEND Physician Assistant
DX: E55.9 Vitamin D deficiency, unspecified (principal); E78.5 Hyperlipidemia, unspecified

== ENCOUNTER → 2021-09-09 | Outpatient (REF) | LOC: M EMP 09:29 | PROVIDERS: ATTEND Family Medicine | DX: Z20.822 Contact with and (suspected) exposure to COVID-19 (principal) ==

== ENCOUNTER → 2021-11-01 | Outpatient (REF) | LOC: M EMP 15:24 | PROVIDERS: ATTEND Family Medicine | DX: Z20.822 Contact with and (suspected) exposure to COVID-19 (principal) ==

== ENCOUNTER → 2021-11-02 | Outpatient (REF) | LOC: M LABSMTC 10:54 | PROVIDERS: ATTEND Family Medicine | DX: Z20.822 Contact with and (suspected) exposure to COVID-19 (principal) ==

== ENCOUNTER → 2022-05-13 | Outpatient (CLI) | payer BC ==
[2022-05-13 09:09] LABS: BASO # 0.1 10^3/uL (0.0-0.2); BASO % 1.2 % (0.0-1.0); EOS # 0.2 10^3/uL (0.0-0.5); EOS % 2.8 % (0.0-3.0); HEMATOCRIT 41.6 % (36.0-47.0); HEMOGLOBIN 13.1 g/dl (12.0-15.5); LYMPH # 2.8 10^3/uL (1.5-5.0); LYMPH % 34.5 % (24.0-44.0); MEAN CORPUSCULAR HEMOGLOBIN 27.4 pg (27.0-33.0); MEAN CORPUSCULAR HGB CONC 31.5 g/dl (32.0-36.5); MONO # 0.6 10^3/uL (0.0-0.8); MONO % 6.8 % (2.0-8.0); NEUTROPHILS # 4.4 10^3/uL (1.5-8.5); NEUTROPHILS % 54.5 % (36.0-66.0); PLATELET COUNT, AUTOMATED 323 10^3/uL (150-450); RED BLOOD COUNT 4.78 10^6/uL (4.00-5.40); WHITE BLOOD COUNT 8.1 10^3/uL (4.0-10.0)
[2022-05-13 09:34] LABS: ALBUMIN 3.8 G/DL (3.2-5.2); ALKALINE PHOSPHATASE 60 U/L (46-116); ALT/SGPT 37 U/L (7.0-40); AST/SGOT 17 U/L (<34); BILIRUBIN,TOTAL 0.7 MG/DL (0.3-1.2); BLOOD UREA NITROGEN 13 MG/DL (9-23); CARBON DIOXIDE LEVEL 29 MMOL/L (20-31); CHLORIDE LEVEL 104 MMOL/L (98-107); CHOLESTEROL LEVEL 188 MG/DL (<200); CREATININE FOR GFR 0.77 MG/DL (0.55-1.30); GLOMERULAR FILTRATION RATE > 60.0 (>60); GLUCOSE, FASTING 88 MG/DL (60-100); HDL CHOLESTEROL 39.1 MG/DL (>40); LDL CHOLESTEROL 122.5 MG/DL (<100); NON-HDL-C 148.9 MG/DL; POTASSIUM SERUM 4.5 MMOL/L (3.5-5.1); SODIUM LEVEL 140 MMOL/L (136-145); TOTAL PROTEIN 6.7 G/DL (5.7-8.2); TRIGLYCERIDES LEVEL 132 MG/DL (<150)
== END ==
LOC: M LAB 08:11
PROVIDERS: ATTEND Physician Assistant
DX: E78.5 Hyperlipidemia, unspecified (principal); R53.83 Other fatigue

== ENCOUNTER → 2022-08-07 | Outpatient (CLI) | payer BC ==
[2022-08-09 14:09] LABS: EBV AB TO NUCLEAR ANTIGEN 37.6 U/mL (0.0-17.9); EBV VIRAL CAPSID AG IgM <36.0 U/mL (0.0-35.9)
== END ==
LOC: M LAB 16:41
PROVIDERS: ATTEND Physician Assistant
DX: R53.83 Other fatigue (principal)

== ENCOUNTER → 2023-03-09 | Outpatient (CLI) | payer BC ==
[2023-03-09 08:22] LABS: HEMATOCRIT 40.4 % (36.0-47.0); HEMOGLOBIN 13.2 g/dl (12.0-15.5); MEAN CORPUSCULAR HGB CONC 32.7 g/dl (32.0-36.5); MEAN CORPUSCULAR VOLUME 85.8 fl (80.0-96.0); PLATELET COUNT, AUTOMATED 310 10^3/uL (150-450); RED BLOOD COUNT 4.71 10^6/uL (4.00-5.40); WHITE BLOOD COUNT 7.8 10^3/uL (4.0-10.0)
[2023-03-09 08:39] LABS: ERYTHROCYTE SEDIMENTATION RATE 19 mm/hr (0-20)
[2023-03-09 08:50] LABS: ALBUMIN 3.7 G/DL (3.2-5.2); ALKALINE PHOSPHATASE 61 U/L (46-116); ALT/SGPT 33 U/L (7.0-40); AST/SGOT 14 U/L (<34); BILIRUBIN,TOTAL 0.7 MG/DL (0.3-1.2); BLOOD UREA NITROGEN 15 MG/DL (9-23); CALCIUM LEVEL 8.8 MG/DL (8.5-10.1); CARBON DIOXIDE LEVEL 27 MMOL/L (20-31); CHLORIDE LEVEL 105 MMOL/L (98-107); CREATININE FOR GFR 0.78 MG/DL (0.55-1.30); GLOMERULAR FILTRATION RATE > 60.0 (>60); GLUCOSE, FASTING 94 MG/DL (60-100); POTASSIUM SERUM 4.3 MMOL/L (3.5-5.1); RHEUMATOID FACTOR QUANT < 3.5 IU/ML (<14); SODIUM LEVEL 137 MMOL/L (136-145); TOTAL PROTEIN 6.9 G/DL (5.7-8.2)
[2023-03-09 08:53] LABS: THYROID STIMULATING HORMONE 2.283 uIU/ML (0.55-4.78); TOTAL 25(OH) VITAMIN D 23.7 NG/ML (20.0-100.0)
== END ==
LOC: M LAB 07:44
PROVIDERS: ATTEND Physician Assistant
DX: M13.0 Polyarthritis, unspecified (principal); R53.83 Other fatigue

== ENCOUNTER → 2023-09-18 | Outpatient (CLI) | payer BC | LOC: M LAB 16:56 | PROVIDERS: ATTEND Physician Assistant | DX: R19.7 Diarrhea, unspecified (principal) ==

== ENCOUNTER → 2023-10-26 | Outpatient (REF) | LOC: M EMP 11:57 | PROVIDERS: ATTEND Family Medicine | DX: Z01.89 Encounter for other specified special examinations (principal) ==

== ENCOUNTER → 2023-12-05 | Outpatient (REF) | LOC: M EMP 08:32 | PROVIDERS: ATTEND Family Medicine | DX: Z11.52 Encounter for screening for COVID-19 (principal) ==

== ENCOUNTER → 2023-12-10 | Outpatient (REF) | LOC: M EMP 09:56 | PROVIDERS: ATTEND Family Medicine | DX: Z20.822 Contact with and (suspected) exposure to COVID-19 (principal) ==

== ENCOUNTER → 2024-03-28 | Outpatient (CLI) | payer BC ==
[2024-03-28 10:00] LABS: HEMATOCRIT 43.2 % (36.0-47.0); HEMOGLOBIN 14.1 g/dl (12.0-15.5); MEAN CORPUSCULAR HGB CONC 32.6 g/dl (32.0-36.5); MEAN CORPUSCULAR VOLUME 85.7 fl (80.0-96.0); PLATELET COUNT, AUTOMATED 397 10^3/uL (150-450); RED BLOOD COUNT 5.04 10^6/uL (4.00-5.40)
[2024-03-28 10:25] LABS: ALBUMIN 3.7 G/DL (3.2-5.2); ALKALINE PHOSPHATASE 66 U/L (35-104); ALT/SGPT 25 U/L (7.0-40); AST/SGOT 18 U/L (<34); BILIRUBIN,TOTAL 0.7 MG/DL (0.3-1.2); BLOOD UREA NITROGEN 17 MG/DL (9-23); CALCIUM LEVEL 9.7 MG/DL (8.5-10.1); CARBON DIOXIDE LEVEL 20 MMOL/L (20-31); CHLORIDE LEVEL 105 MMOL/L (98-107); CHOLESTEROL LEVEL 235 MG/DL (<200); CHOLESTEROL RISK RATIO 5.03 (<5); CREATININE FOR GFR 0.67 MG/DL (0.55-1.30); GLOMERULAR FILTRATION RATE > 60.0 (>60); GLUCOSE, FASTING 103 MG/DL (60-100); HDL CHOLESTEROL 46.7 MG/DL (>40); LDL CHOLESTEROL 159.7 MG/DL (<100); NON-HDL-C 188.3 MG/DL; POTASSIUM SERUM 4.4 MMOL/L (3.5-5.1); SODIUM LEVEL 138 MMOL/L (136-145); TOTAL PROTEIN 7.3 G/DL (5.7-8.2); TRIGLYCERIDES LEVEL 143 MG/DL (<150)
[2024-03-28 10:27] LABS: THYROID STIMULATING HORMONE 2.257 uIU/ML (0.55-4.78); TOTAL 25(OH) VITAMIN D 24.4 NG/ML (20.0-100.0)
[2024-03-31 10:52] LABS: WHITE BLOOD COUNT 8.8 10^3/uL (4.0-10.0)
== END ==
LOC: M LAB 09:10
PROVIDERS: ATTEND Physician Assistant
DX: F33.1 Major depressive disorder, recurrent, moderate (principal); E78.5 Hyperlipidemia, unspecified; E55.9 Vitamin D deficiency, unspecified

== ENCOUNTER → 2024-12-01 | Outpatient (CLI) | payer BC ==
[2024-12-01 18:29] LABS: BASO # 0.1 10^3/uL (0.0-0.2); BASO % 0.9 % (0.0-1.0); EOS # 0.2 10^3/uL (0.0-0.5); EOS % 1.7 % (0.0-3.0); LYMPH # 2.8 10^3/uL (1.5-5.0); LYMPH % 25.6 % (24.0-44.0); MONO # 0.7 10^3/uL (0.0-0.8); MONO % 6.2 % (2.0-8.0); NEUTROPHILS # 7.2 10^3/uL (1.5-8.5); NEUTROPHILS % 65.3 % (36.0-66.0); PLATELET COUNT, AUTOMATED 401 10^3/uL (150-450)
[2024-12-01 18:44] LABS: ALT/SGPT 24 U/L (7.0-40); AST/SGOT 12 U/L (<34); CALCIUM LEVEL 8.9 MG/DL (8.5-10.1); CARBON DIOXIDE LEVEL 30 MMOL/L (20-31); CHLORIDE LEVEL 101 MMOL/L (98-107); CREATININE FOR GFR 0.73 MG/DL (0.55-1.30); GLOMERULAR FILTRATION RATE > 90.0 (>60); POTASSIUM SERUM 4.0 MMOL/L (3.5-5.1); SODIUM LEVEL 140 MMOL/L (136-145)
== END ==
LOC: M WUC 15:35
PROVIDERS: ATTEND Internal Medicine
DX: R10.9 Unspecified abdominal pain (principal)

== ENCOUNTER → 2025-01-08 | Outpatient (CLI) | payer BC | LOC: M WHC 08:58 | PROVIDERS: ATTEND Physician Assistant | DX: K42.9 Umbilical hernia without obstruction or gangrene (principal) ==

== ENCOUNTER → 2025-01-30 | Outpatient (CLI) | payer BC | LOC: M RAD 07:12 | PROVIDERS: ATTEND Physician Assistant | DX: R19.09 Other intra-abdominal and pelvic swelling, mass and lump (principal) ==